=== PATIENT | male | born 1960 | race Caucasian/White ===

== ENCOUNTER 2021-02-03 10:48 | Emergency (ER) | payer OTHER ==
[2021-02-03 11:20] VITALS: BMI 28.4
[2021-02-03] MEDS ORDERED: DEXAMETHASONE SOD PHOSPHATE 10 MG/1 ML VIAL IVPUSH ONE (11:28)
[2021-02-03] MEDS ORDERED: SODIUM CHLORIDE 1,000 ML IV STA (11:28)
[2021-02-03 13:01] LABS: CALCIUM 9.4 mg/dL (8.5-10.1)
[2021-02-03 13:02] LABS: ALBUMIN 3.5 g/dl (3.4-5.0); BLOOD UREA NITROGEN 17.2 mg/dL (7-18)
[2021-02-03 13:05] LABS: CREATININE 1.1 mg/dL (0.55-1.3)
[2021-02-03 13:07] LABS: TOT PROT 8.2 g/dl (6.4-8.2)
[2021-02-03 14:32] VITALS: BP 128/88; PULSE 69; TEMP 97.8
== END 2021-02-03 14:02 | disposition home or self-care (01) ==
LOC: JCOVINFU 10:48
PROC: 3E033GC Introduction of Other Therapeutic Substance into Peripheral Vein, Percutaneous Approach (ICD-10-PCS; principal; 2021-02-03)
PROC: 3E0337Z Introduction of Electrolytic and Water Balance Substance into Peripheral Vein, Percutaneous Approach (ICD-10-PCS; 2021-02-03)
DX: J06.9 Acute upper respiratory infection, unspecified (principal)
CPT/HCPCS: 36415; 80053; 87804; 99284-25; C9803; U0003; U0005

== ENCOUNTER 2021-02-05 12:20 | Emergency (ER) | payer OTHER ==
[2021-02-05 13:33] VITALS: BP 134/75; PULSE 86; TEMP 98.1; BMI 28.4
== END 2021-02-05 17:16 | disposition home or self-care (01) ==
LOC: JER 12:20 → JCOVINFU 12:20 → JER 17:16
DX: R05.1 Acute cough (principal); M79.10 Myalgia, unspecified site; R11.0 Nausea
CPT/HCPCS: 71046-TC-FY; 87804; 99284-25; C9803; U0003; U0005